=== PATIENT | male | born 1940 | race Caucasian/White ===

== ENCOUNTER 2019-07-23 13:44 | Emergency (ER) | payer OTHER ==
[2019-07-23 13:55] VITALS: BP 154/104
--- NOTE | 2019-07-23 15:08 | ED Physician Documentation ---
PD HPI MAJOR BURN - Stated complaint Stated Complaint: BURNING ON FOOT FROM GAS - Chief complaint Chief Complaint: Ext Problem - History obtained from History obtained from: Patient - History of Present Illness Timing - onset: Today (just prior to arrival) PD HPI MAJOR BURN MECHANISM: Chemical, Other (patient spilled gasoline on his left foot while working in his yard, didn't initially do anything about it for 40 minutes. Then removed his shoe and washed it off with water.) Burn(s) location: Left Lower Extremity Severity Comments: mild Associated symptoms: No: Smoke inhalation, Possible carbon monoxide, Loss of consciousness Symptoms improve with: Nothing Worsens with: Other (nothing) Contributing factors: Denies: Anticoagulated, Intoxicated - Treatment prior to arrival Treatment prior to arrival: irrigation and removal of clothing and shoes covered in gasoline Review of Systems Ten Systems: 10 systems reviewed and negative Constitutional: reports: Reviewed and negative Cardiac: reports: Reviewed and negative Respiratory: reports: Reviewed and negative GI: reports: Reviewed and negative Musculoskeletal: denies: Extremity pain, Joint pain, Extremity swelling, Joint swelling Neurologic: denies: Generalized weakness, Focal weakness, Numbness Endocrine: reports: Reviewed and negative Immunocompromised: reports: Reviewed and negative PD PAST MEDICAL HISTORY - Past Medical History Past Medical History: Yes Cardiovascular: Hypertension - Present Medications Home Medications: Ambulatory Orders Medication Instructions Recorded Confirmed Atenolol 25 mg PO 07/23/19 Finasteride [Propecia] 1 mg PO 07/23/19 07/23/19 Lisinopril 10 mg PO 07/23/19 - Allergies Allergies/Adverse Reactions: Allergies Allergy/AdvReac Type Severity Reaction Status Date / Time No Known Drug Allergies Allergy Verified 07/23/19 13:55 PD ED PE NORMAL - Vitals Vital signs reviewed: Yes - General General: Alert and oriented X 3, No acute distress, Well developed/nourished - HEENT HEENT: Atraumatic - Neck Neck: Supple, no meningeal sign - Cardiac Cardiac: RRR - Respiratory Respiratory: No respiratory distress - Abdomen Abdomen: Soft, Non distended - Male Male : Deferred - Rectal Rectal: Deferred - Derm Derm: Normal color, Warm and dry, No rash, Other (no burn ) - Extremities Extremities: No deformity, No tenderness to palpate, Normal ROM s pain, No edema - Neuro Neuro: Alert and oriented X 3 Eye Opening: Spontaneous Motor: Obeys Commands Verbal: Oriented GCS Score: 15 - Psych Psych: Normal mood, Normal affect PD BURN EXAM RULE OF 9S - TBSA Calculation Estimated TBSA: 0 Results - Vitals Vitals: Vital Signs - 24 hr 07/23/19 13:52 Temperature 36.8 C Heart Rate 66 Respiratory 20 Rate Blood Pressure 154/104 H O2 Saturation 99 Oxygen O2 Source Room air PD MEDICAL DECISION MAKING - ED course Complexity details: considered differential, d/w patient ED course: ddx- foot burn, gasoline exposure, general screening exam 79 y/o M exposed to gasoline that he spilled on his left foot. He reports that he is concerned about absorption of gasoline through is foot. He irrigated it himself and changed his clothes. His clothes still smell like gasoline but have no gasoline on examination. His foot is normal in appearance. He has no singleton. There is no significant absorption of gasoline through the foot and he is thus stable for discharge given he is asymptomatic. Will discharge pt with return precautions. Departure - Departure Disposition: 01 Home, Self Care Clinical Impression: Exposure to chemical compounds Condition: Stable Record reviewed to determine appropriate education?: Yes Instructions: ED Chemical Exp Skin Comments: Skin contact with gasoline is of very low risk for significant absorption. This is even lower when there is no evidence of a skin burn which would be the most likely problem with gasoline skin exposure. The main treatment is irrigation and ensuring that it did not contact the eyes and was not ingested or vapors weren't inhaled. Your exposure today was relatively minor and you should be stable to return home now that is improved. Discharge Date/Time: 07/23/19 15:17
== END 2019-07-23 15:17 | disposition home or self-care (01) ==
LOC: ED 13:44
DX: Z77.098 Contact with and (suspected) exposure to other hazardous, chiefly nonmedicinal, chemicals (principal); I10 Essential (primary) hypertension
CPT/HCPCS: 99282

== ENCOUNTER 2024-05-11 15:31 | Emergency (ER) | payer MEDICARE, OTHER ==
[2024-05-11 15:59] LABS: BASOPHILS # (AUTO) 0.1 10^3/uL (0.0-0.1); BASOPHILS % (AUTO) 0.8 %; EOSINOPHILS # (AUTO) 0.2 10^3/uL (0.0-0.7); EOSINOPHILS % (AUTO) 2.6 %; HCT - HEMATOCRIT 39.8 % (42.0-52.0); HGB - HEMOGLOBIN 13.5 g/dL (14.0-18.0); LYMPHOCYTES # (AUTO) 1.3 10^3/uL (1.5-3.5); LYMPHOCYTES % (AUTO) 20.3 %; MEAN CORPUSCULAR HEMOGLOBIN 31.2 pg (27.0-31.0); MEAN CORPUSCULAR HGB CONC 33.9 g/dL (32.0-36.0); MEAN CORPUSCULAR VOLUME 91.9 fL (80.0-94.0); MEAN PLATELET VOLUME 11.5 fL (7.4-11.4); MONOCYTES # (AUTO) 0.6 10^3/uL (0.0-1.0); MONOCYTES % (AUTO) 9.8 %; NEUTROPHILS # (AUTO) 4.1 10^3/uL (1.5-6.6); NEUTROPHILS % (AUTO) 66.3 %; PLT - PLATELET COUNT 119 10^3/uL (130-450); RED BLOOD COUNT 4.33 10^6/uL (4.70-6.10); RED CELL DISTRIBUTION WIDTH 12.1 % (12.0-15.0); WHITE BLOOD COUNT 6.2 x10^3/uL (4.8-10.8)
[2024-05-11] MEDS ORDERED: iohexoL-300 100 ML VIAL ONE (15:59)
--- NOTE | 2024-05-11 16:02 | ED Physician Documentation ---
History of Present Illness - Stated complaint Stated Complaint: L SIDE NUMB/TINGLING - Chief complaint Chief Complaint: Neuro - Additonal information Additional information: 83-year-old male with history of hypertension and BPH not on anticoagulations presents to the emergency department for left-sided numbness tingling and dizziness sensation. Patient says upon awaking this morning around 6 AM he felt like the left side of his body and the top of his head had a tingling sensation. is at bedside and she said that he has not been acting like himself today. Patient reports that he has tingling sensation he has no slurred speech he is able to walk without any difficulty and says that overall the symptoms actually feel like they have improved since he has been here in the emergency department. PD PAST MEDICAL HISTORY - Past Medical History Cardiovascular: Hypertension - Present Medications Home Medications: Ambulatory Orders Medication Instructions Recorded Confirmed Finasteride [Propecia] 1 mg PO 07/23/19 07/23/19 atenoloL [Atenolol] 25 mg PO 07/23/19 lisinopriL [Lisinopril] 10 mg PO 07/23/19 Aspirin [Adult Aspirin Regimen] 81 mg PO DAILY #30 cap 05/11/24 Atorvastatin [Lipitor] 40 mg PO QPM 30 Days #30 tablet 05/11/24 Clopidogrel [Plavix] 75 mg PO DAILY 20 Days #20 tablet 05/11/24 - Allergies Allergies/Adverse Reactions: Allergies Allergy/AdvReac Type Severity Reaction Status Date / Time No Known Drug Allergies Allergy Verified 05/11/24 15:38 - Social History Does the pt smoke?: No Smoking Status: Former smoker Does the pt drink ETOH?: Yes Does the pt have substance abuse?: No - POLST Patient has POLST: No PD ED PE NORMAL - Vitals Vital signs reviewed: Yes - General General: Alert and oriented X 3, No acute distress, Well developed/nourished - HEENT HEENT: Atraumatic, PERRL, EOMI, Moist mucous membranes - Neck Neck: Supple, no meningeal sign - Cardiac Cardiac: RRR - Respiratory Respiratory: No respiratory distress, Clear bilaterally - Derm Derm: Normal color, Warm and dry, No rash - Neuro Neuro: Alert and oriented X 3, stuntman 2-12 intact, Normal speech. No: No motor deficit (very subtle left leg weakness), No sensory deficit (very subtle decreased sensation to left arm only.) Eye Opening: Spontaneous Motor: Obeys Commands Verbal: Oriented GCS Score: 15 - Psych Psych: Normal mood, Normal affect PD ED PE EXPANDED - Neuro Neuro: Alert and Oriented X 3, Normal Speech, Normal reflexes, Abnormal sensation (minimally decreased sensation to LUE), LLE (4/5 strength), CNII-XII intact, PERRL, Normal gait, Normal finger nose, Normal speech. No: Dyscongugate gaze, Nystagmus Results - Vitals Vitals: Vital Signs - 24 hr 05/11/24 05/11/24 05/11/24 15:38 16:13 17:19 Temperature 36.7 C 36.8 C Heart Rate 57 L 56 L 64 Respiratory 15 18 21 Rate Blood Pressure 161/57 H 158/65 H 123/82 H O2 Saturation 96 96 95 05/11/24 05/11/24 05/11/24 18:00 19:00 19:30 Temperature Heart Rate 55 L 57 L 55 L Respiratory 23 18 16 Rate Blood Pressure 188/78 H 169/79 H 150/67 H O2 Saturation 95 95 96 05/11/24 19:52 Temperature Heart Rate 56 L Respiratory 18 Rate Blood Pressure 150/67 H O2 Saturation 96 Oxygen O2 Source Room air - Labs Labs: Laboratory Tests 05/11/24 05/11/24 05/11/24 15:52 15:52 15:52 WBC 6.2 RBC 4.33 L Hgb 13.5 L Hct 39.8 L MCV 91.9 MCH 31.2 H MCHC 33.9 RDW 12.1 Plt Count 119 L MPV 11.5 H Neut # (Auto) 4.1 Lymph # (Auto) 1.3 L [place] # (Auto) 0.6 Eos # (Auto) 0.2 Baso # (Auto) 0.1 Absolute Nucleated RBC 0.00 Nucleated RBC % 0.0 PT INR Sodium 135 Potassium 4.4 Chloride 105 Carbon Dioxide 24 Anion Gap 6.0 BUN 17 Creatinine 0.8 Estimated GFR (MDRD) 93 Glucose 131 H Calcium 9.4 Magnesium 1.5 L Total Bilirubin 0.8 AST 23 ALT 21 Alkaline Phosphatase 55 Total Protein 6.9 Albumin 4.0 Globulin 2.9 Albumin/Globulin Ratio 1.4 Lipase 32 Urine Color Urine Clarity Urine pH Ur Specific [place] Urine Protein Urine Glucose (UA) Urine Ketones Urine Occult Blood Urine Nitrite Urine Bilirubin Urine Urobilinogen Ur Leukocyte Esterase Ur Microscopic Review Urine Culture Comments 05/11/24 05/11/24 15:56 17:13 WBC RBC Hgb Hct MCV MCH MCHC RDW Plt Count MPV Neut # (Auto) Lymph # (Auto) [place] # (Auto) Eos # (Auto) Baso # (Auto) Absolute Nucleated RBC Nucleated RBC % PT 13.0 H INR 1.2 Sodium Potassium Chloride Carbon Dioxide Anion Gap BUN Creatinine Estimated GFR (MDRD) Glucose Calcium Magnesium Total Bilirubin AST ALT Alkaline Phosphatase Total Protein Albumin Globulin Albumin/Globulin Ratio Lipase Urine Color YELLOW Urine Clarity CLEAR Urine pH 6.5 Ur Specific [place] 1.015 Urine Protein TRACE Urine Glucose (UA) NEGATIVE Urine Ketones NEGATIVE Urine Occult Blood NEGATIVE Urine Nitrite NEGATIVE Urine Bilirubin NEGATIVE Urine Urobilinogen 0.2 (NORMAL) Ur Leukocyte Esterase NEGATIVE Ur Microscopic Review NOT INDICATED Urine Culture Comments NOT INDICATED - Rads (name of study) Head CT without Relevant Findings:: Final report received, EMP independent interpretation of test, Other (Likely left frontal meningioma measuring up to 2.9 centimeters there is associated edema within the adjacent left frontal lobe) Angio head neck CT Relevant Findings:: Final report received, EMP independent interpretation of test, Other (No significant intracranial arterial abnormality, 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 NIH score 2 points upon initial arrival to the emergency department unfortunately patient does not meet criteria for code stroke he is outside the window for tPA or TNK. Labs are complete for further evaluation reveals mild thrombocytopenia, 119 normal kidney function mild hypomagnesemia 1.5 and normal urinalysis. Head CT was complete for further evaluation and reveals likely left frontal meningioma measuring up to 2.9 cm there is associated edema within the adjacent left frontal lobe. No other acute intracranial process or abnormalities. When I reported the patient and the patient's of these findings he says that he is known about this meningioma now for about the last 20 years at that he is unsure the size of it but has been told that it is nonmalignant. 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 We discussed the possibility of admitting patient for further stroke workup but given that tomorrow is Labor Day and unfortunately we will not have the ability to do any further testing or workup patient as well as his have opted to discharge home and follow-up with her primary care provider at [facility] for outpatient follow-up and workup. Patient's said that she would be reaching out to the patient's team via [facility] for further workup. He was informed that he would greatly benefit from an outpatient echocardiogram and outpatient MRI.ABCD2 score was also complete and patient scored 5 points for a moderate risk of a repeat stroke within the next because of this we started patient on dual antiplatelet therapy he was given aspirin 81 mg here and was told to take aspirin daily at home moving forward. He was also started on Plavix here in the ER and prescription of Plavix was sent to patient's preferred pharmacy and was told to take both of these medications for the next 3 weeks and started on high-dose statin therapy. Patient and are given very strict ER return precautions all questions answered and they are safe for discharge at this point in time. Departure - Departure Disposition: 01 Home, Self Care Clinical Impression: TIA (transient ischemic attack) Instructions: TIA Prescriptions: Aspirin [Adult Aspirin Regimen] 81 mg PO DAILY #30 cap Atorvastatin [Lipitor] 40 mg PO QPM 30 Days #30 tablet Clopidogrel [Plavix] 75 mg PO DAILY 20 Days #20 tablet Comments: Thank you for trusting us with your care. We did discuss the possibility of admitting her for a possible TIA. His symptoms do sound very similar to a TIA I do believe that he would benefit from an MRI. unfortunately since tomorrow is Labor Day we do not have the ability to do any testing and so I think would be best if you guys would not get a hold of your primary care provider at [facility] for further outpatient workup such as MRI and possible echocardiogram. Monty you should start taking aspirin 81 mg daily as well as Plavix 75 mg daily for the next 3 weeks after 3 weeks are out which will be May 31, He will change to just taking the aspirin daily. I have also sent a prescription of atorvastatin To preferred pharmacy and you should also start taking this medication nightly. If the symptoms come back or you start to develop any other concerning symptoms similar to stroke such as slurred speech, weakness on one side your body, numbness on one side of your body, confusion, dizziness or any other symptoms please present back to the nearest emergency department immediately. PT NAME: MONTY ARGUELLO MR#: [id number] REG ER/ED AGE: 83 CI DT/TM: 05/11/2410/03/1547 PCP: Aaron Palacio MD : 1940 ATT: SEX: M ORD: Carlton Downs SENIOR ACCOUNTING CLERK EXAM: CT/HNA PROCEDURE: Angio Head/Neck INDICATIONS: left sided tingling TECHNIQUE: After the administration of intravenous contrast, 1 mm thick sections acquired from the aortic arch through the [place] of [place]. 3-dimensional ezmikqo-szudnsmve-kxookfbzqr (MIP) and/or volume rendering reformats were acquired of the central intracranial vasculature and neck separately. For radiation dose reduction, the following was used: automated exposure control, adjustment of mA and/or kV according to patient size. CONTRAST: omni 300, 100 ml COMPARISON: None. FINDINGS: Image quality: Diagnostic. HEAD CT: Please refer to same day CT of the head. HEAD CT ANGIOGRAPHY: Anterior circulation: Intracranial internal carotid arteries are normal in size and flow with significant atherosclerotic calcifications. The flow within the paired anterior cerebral arteries is normal and symmetric. The flow within the middle cerebral arteries is normal and symmetric. The anterior communicating artery is seen. No aneurysms are seen. Posterior circulation: Right vertebral artery is dominant and forms a normal basilar artery. Left vertebral artery terminates into the PICA. origin of the bilateral visual communications instructor. Flow within the posterior cerebral arteries is normal and symmetric. No aneurysms are seen. NECK CT ANGIOGRAPHY: Carotid system: The great vessels demonstrate a conventional anatomy as they arise from the aortic arch. The origins of the common carotid arteries appear patent. The common carotid arteries demonstrate normal caliber and courses. Coarse ossifications at the the bifurcations with mild stenosis on the right, less than 50% and moderate stenosis of the left, 50-69% (image 115).. The internal carotid arteries demonstrate normal calibers and courses. Posterior circulation: The origins of the vertebral arteries both appear widely patent. The right vertebral artery is dominant and forms the basilar artery. Left vertebral artery terminates in the PICA Soft tissues: Visualized neck soft tissues demonstrate no suspicious abnormalities. Bones: No suspicious bony lesions. Visualized cervical spine appears normally aligned. Multilevel degenerative changes of the spine. IMPRESSION: No significant intracranial arterial abnormality is seen. 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 Otherwise, no significant abnormality is seen within the arteries of the neck. The estimate of stenosis included in the report of the imaging study was calculated using the NASCET method Reviewed by: Xu Schmidt MD on 05/11/2024 5:40 PM PDT Approved by: Xu Schmidt MD on 05/11/2024 5:40 PM PDT Station ID: [id number] PT NAME: MONTY ARUGELLO MR#: [id number] REG ER/ED AGE: 83 CI DT/TM: 05/11/2410/03/1547 PCP: Aaron Palacio MD : 1940 ATT: SEX: M ORD: Carlton Downs SENIOR ACCOUNTING CLERK EXAM: CT/HEADWO ([id number]) PROCEDURE: Head WO INDICATIONS: Neuro deficit, acute, stroke suspected TECHNIQUE: Noncontrast 4.5 mm thick angled axial sections acquired from the foramen magnum to the vertex. For radiation dose reduction, the following was used: automated exposure control, adjustment of mA an d/or kV according to patient size. COMPARISON: None. FINDINGS: Image quality: Excellent. CSF spaces: Basal cisterns are patent. No extra-axial fluid collections. Ventricles are normal in size and shape. Brain: Area of hypoattenuation within the left frontal lobe. Possible dural base lesion on the left frontal calvarium measuring 2.9 x 2.2 x 1.9 cm (AP radiograph cc). No midline shift. No intracranial hemorrhage. Age-related global volume loss and chronic microvascular ischemic changes. Intracranial atherosclerotic vascular calcifications. [place]-white matter interface is normal. Skull and face: Calvarium and visualized facial bones are intact, without suspicious lesions. Sinuses: Mild mucosal thickening in the left lateral sinus with partial opacification. The mastoids are clear. IMPRESSION: 1.Likely left frontal meningioma measuring up to 2.9 cm, as above. There is associated edema within the adjacent left frontal lobe. MRI brain with and without contrast can be obtained for further evaluation. 2.Otherwise, no acute intracranial process. Reviewed by: Xu Schmidt MD on 05/11/2024 5:35 PM PDT Approved by: Xu Schmidt MD on 05/11/2024 5:35 PM PDT Station ID: [id number] Report Electronically Signed by Xu Schmidt MD 05/11/24 1732 05/11/24 1735 cc: Aaron Palacio MD; Carlton Mcmahon DNP Forms: PCP List Discharge Date/Time: 05/11/24 19:53
[2024-05-11 16:07] LABS: INR 1.2 (0.8-1.2)
[2024-05-11 16:10] LABS: ALBUMIN/GLOBULIN RATIO 1.4 (1.0-2.2); BILIRUBIN,TOTAL 0.8 mg/dL (0.2-1.0); CALCIUM 9.4 mg/dL (8.5-10.3); CREATININE 0.8 mg/dL (0.6-1.3); POTASSIUM 4.4 mmol/L (3.5-4.5); TOTAL PROTEIN 6.9 g/dL (6.4-8.9)
[2024-05-11 17:18] LABS: BILIRUBIN,URINE NEGATIVE (NEGATIVE); GLUCOSE, URINE (UA) NEGATIVE (NEGATIVE); KETONES,URINE (UA) NEGATIVE (NEGATIVE); LEUKOCYTE ESTERASE, URINE NEGATIVE (NEGATIVE); NITRITE,URINE NEGATIVE (NEGATIVE); OCCULT BLOOD,URINE NEGATIVE (NEGATIVE); PH,URINE 6.5 PH (5.0-7.5); PROTEIN,URINE TRACE mg/dL (NEGATIVE); UROBILINOGEN,URINE 0.2 (NORMAL) E.U./dL (NORMAL)
[2024-05-11 17:19] LABS: CLARITY,URINE CLEAR (CLEAR)
--- NOTE | 2024-05-11 17:36 | CT Report ---
PROCEDURE: Head WO INDICATIONS: Neuro deficit, acute, stroke suspected TECHNIQUE: Noncontrast 4.5 mm thick angled axial sections acquired from the foramen magnum to the vertex. For r adiation dose reduction, the following was used: automated exposure control, adjustment of mA and/or kV according to patient size. COMPARISON: None. FINDINGS: Image quality: Excellent. CSF spaces: Basal cisterns are patent. No extra-axial fluid collections. Ventricles are normal in size and shape. Brain: Area of hypoattenuation within the left frontal lobe. Possible dural base lesion on the left frontal calvarium measuring 2.9 x 2.2 x 1.9 cm (AP radiograph cc). No midline shift. No intracrania l hemorrhage. Age-related global volume loss and chronic microvascular ischemic changes. Intracranial atherosclerotic vascular calcifications. [place]-white matter interface is normal. Skull and face: Calvarium and visualized facial bones are intact, without suspicious lesions. Sinuses: Mild mucosal thickening in the left lateral sinus with partial opacification. The mastoids a re clear. IMPRESSION: 1.Likely left frontal meningioma measuring up to 2.9 cm, as above. There is associated edema within t he adjacent left frontal lobe. MRI brain with and without contrast can be obtained for further evalua tion. 2.Otherwise, no acute intracranial process. Reviewed by: Xu Schmidt MD on 05/11/2024 5:35 PM PDT Approved by: Xu Schmidt MD on 05/11/2024 5:35 PM PDT Station ID: [id number]
--- NOTE | 2024-05-11 17:41 | CT Report ---
PROCEDURE: Angio Head/Neck INDICATIONS: left sided tingling TECHNIQUE: After the administration of intravenous contrast, 1 mm thick sections acquired from the aortic arch t hrough the [place] of [place]. 3-dimensional jmdsyrx-artfjswwi-cwjujhlgwy (MIP) and/or volume renderin g reformats were acquired of the central intracranial vasculature and neck separately. For radiation dose reduction, the following was used: automated exposure control, adjustment of mA and/or kV acco rding to patient size. CONTRAST: omni 300, 100 ml COMPARISON: None. FINDINGS: Image quality: Diagnostic. HEAD CT: Please refer to same day CT of the head. HEAD CT ANGIOGRAPHY: Anterior circulation: Intracranial internal carotid arteries are normal in size and flow with signif icant atherosclerotic calcifications. The flow within the paired anterior cerebral arteries is tamy l and symmetric. The flow within the middle cerebral arteries is normal and symmetric. The anterior communicating artery is seen. No aneurysms are seen. Posterior circulation: Right vertebral artery is dominant and forms a normal basilar artery. Left paul tebral artery terminates into the PICA. origin of the bilateral spring setter. Flow within the posterior cerebral arteries is normal and symmetric. No aneurysms are seen. NECK CT ANGIOGRAPHY: Carotid system: The great vessels demonstrate a conventional anatomy as they arise from the aortic a rch. The origins of the common carotid arteries appear patent. The common carotid arteries demonstr ate normal caliber and courses. Coarse ossifications at the the bifurcations with mild stenosis on th e right, less than 50% and moderate stenosis of the left, 50-69% (image 115).. The internal carotid arteries demonstrate normal calibers and courses. Posterior circulation: The origins of the vertebral arteries both appear widely patent. The right ve rtebral artery is dominant and forms the basilar artery. Left vertebral artery terminates in the PICA Soft tissues: Visualized neck soft tissues demonstrate no suspicious abnormalities. Bones: No suspicious bony lesions. Visualized cervical spine appears normally aligned. Multilevel degenerative changes of the spine. IMPRESSION: No significant intracranial arterial abnormality is seen. 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 Otherwise, no significant abnormality is seen wit hin the arteries of the neck. The estimate of stenosis included in the report of the imaging study was calculated using the NASCET method Reviewed by: Xu Madden MD on 05/11/2024 5:40 PM PDT Approved by: Xu Madden MD on 05/11/2024 5:40 PM PDT Station ID: [id number]
[2024-05-11] MEDS: iohexoL-300 100 ML VIAL IVP ONE (18:19)
[2024-05-11] MEDS: ATORVASTATIN 40 MG TABLET PO STA (19:45)
[2024-05-11] MEDS: ASPIRIN EC 81 MG TABLET PO STA (19:45)
[2024-05-11] MEDS: CLOPIDOGREL 75 MG TABLET PO STA (19:45)
[2024-05-11 19:56] VITALS: BP 150/67; O2SAT 96
== END 2024-05-11 19:53 | disposition home or self-care (01) ==
LOC: ED 15:31
DX: G45.9 Transient cerebral ischemic attack, unspecified (principal); Z79.01 Long term (current) use of anticoagulants; Z87.891 Personal history of nicotine dependence; Z79.82 Long term (current) use of aspirin
CPT/HCPCS: 36415; 70450; 70496; 70498; 80053; 81003; 83690; 83735; 85025; 85610; 93005; 99284; A9270; Q9967; 81001; 87086